=== PATIENT | female | born 1985 | race Caucasian/White ===

== ENCOUNTER 2018-07-04 10:20 | Emergency (ER) | payer MEDICAID, OTHER ==
[~2018-07-04] VITALS: Ht 157.5 cm; Wt 87.1 kg
[~2018-07-04 10:20] MED LIST: PREN-88 PO
[2018-07-04] MEDS ORDERED: CYCLOBENZAPRINE 10MG TABLET PO ONE (11:15)
[2018-07-04] MEDS ORDERED: KETOROLAC 60MG/2ML VIAL IM ONE (11:15)
[2018-07-04 11:22] VITALS: BP 111/75
[2018-07-04 12:59] LABS: CLARITY URINE TURBID (CLEAR); COLOR URINE DARK YELLOW (YELLOW); KETONES URINE TRACE (NEGATIVE); LEUKOCYTE ESTERASE URINE 2+ (NEGATIVE); NITRITE URINE NEGATIVE (NEGATIVE); OCCULT BLOOD URINE NEGATIVE (NEGATIVE); PROTEIN URINE TRACE (NEGATIVE); SPECIFIC GRAVITY URINE 1.031 (1.005-1.030)
== END 2018-07-04 13:34 | disposition home or self-care (01) ==
LOC: ER 10:55
DX: S39.012A Strain of muscle, fascia and tendon of lower back, initial encounter (principal); N39.0 Urinary tract infection, site not specified; Z90.49 Acquired absence of other specified parts of digestive tract; Z79.899 Other long term (current) drug therapy; Y99.8 Other external cause status; Y08.89XA Assault by other specified means, initial encounter; Y93.89 Activity, other specified; Y92.89 Other specified places as the place of occurrence of the external cause
CPT/HCPCS: 81003; 81025; 87077; 87086; 87186; 96372; 99284; J1885

== ENCOUNTER 2019-06-01 09:12 | Observation (INO) | payer MEDICAID, OTHER ==
[~2019-06-01] VITALS: Ht 157.5 cm; Wt 66.7 kg
== END 2019-06-01 11:30 | disposition home or self-care (01) ==
LOC: 8 EST LDRP 09:12
PROVIDERS: ADMIT Specialist; ATTEND Specialist
DX: O26.893 Other specified pregnancy related conditions, third trimester (principal); R10.9 Unspecified abdominal pain; Z3A.35 35 weeks gestation of pregnancy
CPT/HCPCS: 99281; G0378

== ENCOUNTER 2019-06-08 16:00 | Observation (INO) | payer MEDICAID ==
[~2019-06-08] VITALS: Ht 157.5 cm; Wt 80.7 kg
[2019-06-08] MEDS ORDERED: BUTORPHANOL TARTRATE 2 MG/ML VIAL IV PRN (16:45)
[2019-06-08] MEDS ORDERED: DEXT 5%/LR + PITOCIN 20UNITS/L 1,000 ML IV PRN (16:45)
[2019-06-08] MEDS ORDERED: METHYLERGONOVINE MALEATE 0.2 MG/ML IM PRN (16:45)
[2019-06-08] MEDS ORDERED: MISOPROSTOL 100MCG TABLET VG PRN (16:45)
[2019-06-08] MEDS ORDERED: LIDOCAINE HCL 1% 20ML VIAL (Pyxis) INJ INFIL PRN (16:45)
[2019-06-08] MEDS ORDERED: NALOXONE HCL 0.4 MG/ML 1ML VIAL IM PRN (16:45)
[2019-06-08] MEDS ORDERED: CARBOPROST TROMETHAMINE 250 MCG/ML AMPUL IM PRN (16:45)
[2019-06-08] MEDS ORDERED: MINERAL OIL 30ML BOTTLE PR PRN (17:00)
[2019-06-08] MEDS: LACTATED RINGERS 1,000 ML IV SCH ×2 (17:25→17:43)
[2019-06-08 17:52] LABS: BASOPHILS % 0.4 % (0.0-2.0); EOSINOPHILS % 0.5 % (0.0-5.0); HEMATOCRIT. 36.6 % (36.0-48.0); HEMOGLOBIN. 12.4 g/dL (12.0-16.0); LYMPHOCYTES % 19.7 % (20.0-50.0); MEAN CORPUSCULAR HEMOGLOBIN 28.9 pg (28.0-32.0); MEAN CORPUSCULAR VOLUME 85.5 fL (81.0-99.0); MEAN PLATELET VOLUME 9.7 fl (7.4-10.4); MONOCYTES % 3.4 % (2.0-8.0); PLATELET 221 x1000/uL (130-400); RED BLOOD CELL COUNT 4.29 mill/uL (4.2-5.4); RED CELL DISTRIBUTION WIDTH 13.9 % (11.6-14.6)
[2019-06-08 18:06] LABS: INR 0.9; PARTIAL THROMBOPLASTIN TIME 26.8 sec (23.4-31.0); PROTHROMBIN TIME 9.7 sec (9.6-11.0)
[2019-06-08 18:15] LABS: CLARITY URINE CLOUDY (CLEAR); COLOR URINE DARK YELLOW (YELLOW); KETONES URINE TRACE (NEGATIVE); LEUKOCYTE ESTERASE URINE 2+ (NEGATIVE); NITRITE URINE NEGATIVE (NEGATIVE); OCCULT BLOOD URINE 3+ (NEGATIVE); PH URINE 5.5 (4.5-8.0); PROTEIN URINE TRACE (NEGATIVE); SPECIFIC GRAVITY URINE 1.031 (1.005-1.030)
[2019-06-08 18:17] LABS: *AMPHETAMINES SCREEN URINE NEGATIVE (NEGATIVE); *BARBITURATES SCREEN URINE NEGATIVE (NEGATIVE); *BENZODIAZEPINES SCREEN URINE NEGATIVE (NEGATIVE); *COCAINE SCREEN URINE NEGATIVE (NEGATIVE)
[2019-06-08 18:18] LABS: CANNABINOID URINE SCREEN NEGATIVE (NEGATIVE); METHADONE URINE SCREEN NEGATIVE (NEGATIVE); OPIATES URINE SCREEN NEGATIVE (NEGATIVE); PHENCYCLIDINE URINE SCREEN NEGATIVE (NEGATIVE)
[2019-06-08 18:23] LABS: HEPATITIS B SURFACE ANTIGEN NEGATIVE
[2019-06-08] MEDS ORDERED: DEXT 5%/LR + PITOCIN 20UNITS/L 1,000 ML IV SCH (20:58)
[2019-06-08] MEDS ORDERED: IBUPROFEN 400MG TABLET PO PRN (21:00)
[2019-06-08] MEDS ORDERED: RHO(D) IMMUNE GLOBULIN 300 MCG/SYR IM PRN (21:00)
[2019-06-08] MEDS ORDERED: BENZOCAINE/LANOLIN/ALOE VERA SPRAY TOP PRN (21:00)
[2019-06-08 21:40] VITALS: BP 113/69
[2019-06-08 22:15] VITALS: BP 114/66
[2019-06-08] MEDS: IBUPROFEN 800MG TABLET PO PRN (23:23)
[2019-06-09] MEDS: IBUPROFEN 800MG TABLET PO PRN ×3 (05:03→17:19)
[2019-06-09 07:42] VITALS: BP 93/51
[2019-06-09 08:53] LABS: BASOPHILS % 0.3 % (0.0-2.0); EOSINOPHILS % 0.2 % (0.0-5.0); HEMATOCRIT. 31.8 % (36.0-48.0); HEMOGLOBIN. 10.6 g/dL (12.0-16.0); LYMPHOCYTES % 16.4 % (20.0-50.0); MEAN CORPUSCULAR HEMOGLOBIN 28.5 pg (28.0-32.0); MEAN CORPUSCULAR VOLUME 85.5 fL (81.0-99.0); MEAN PLATELET VOLUME 9.1 fl (7.4-10.4); MONOCYTES % 3.5 % (2.0-8.0); NEUTROPHILS % 79.6 % (40.0-76.0); PLATELET 185 x1000/uL (130-400); RED BLOOD CELL COUNT 3.71 mill/uL (4.2-5.4)
[2019-06-09 16:12] VITALS: BP 98/51
[2019-06-09 19:20] VITALS: BP 94/55
[2019-06-09 23:45] VITALS: BP 104/56
[2019-06-10] MEDS: IBUPROFEN 800MG TABLET PO PRN ×2 (00:25→08:43)
[2019-06-10 07:58] VITALS: BP 102/68
[2019-06-10] MEDS ORDERED: TETANUS, DIPHTHERIA, PERTUSSIS VAC/PF 0.5ML (>7YR OLD) IM ONE (09:00)
== END 2019-06-10 11:15 | disposition home or self-care (01) ==
LOC: 8 EST LDRP 16:00 → 8EST 21:40
PROVIDERS: ADMIT Obstetrics & Gynecology; ATTEND Obstetrics & Gynecology
DX: O48.0 Post-term pregnancy (principal); Z3A.38 38 weeks gestation of pregnancy
CPT/HCPCS: 36415; 80305; 81003; 85025; 85610; 85730; 86592; 86703; 86762; 86850; 86900; 86901; 87340; 90715; 96365; 96372; G0378; J0595; J2590; J3490

== ENCOUNTER 2021-04-13 10:10 | Emergency (ER) | payer MEDICAID ==
[~2021-04-13] VITALS: Ht 157.5 cm; Wt 91.0 kg
[2021-04-13] MEDS ORDERED: ACETAMINOPHEN 325MG TABLET PO ONE (11:15)
[2021-04-13] MEDS ORDERED: TOPUD PO (12:01)
[2021-04-13 12:39] VITALS: BP 98/74
== END 2021-04-13 12:40 | disposition home or self-care (01) ==
LOC: ER 10:10
DX: M25.512 Pain in left shoulder (principal)
CPT/HCPCS: 73030; 99283; A4565

== ENCOUNTER 2021-09-03 23:44 | Emergency (ER) | payer MEDICAID ==
[~2021-09-03] VITALS: Ht 160 cm; Wt 90.0 kg
[~2021-09-03 23:44] MED LIST changes: -PREN-88 PO; +TOPUD PO
[2021-09-04] MEDS: KETOROLAC 30MG/ML VIAL IV STA (01:08)
[2021-09-04] MEDS: SODIUM CHLORIDE 0.9% 1,000 ML IV ONE (01:08)
[2021-09-04] MEDS: MAGNESIUM/ALUMINUM HYDROXIDE/SIMETHICONE 30ML UDC PO STA (01:08)
[2021-09-04 01:16] LABS: BASOPHILS % 0.4 % (0.0-2.0); EOSINOPHILS % 1.4 % (0.0-5.0); HEMOGLOBIN. 12.7 g/dL (12.0-16.0); LYMPHOCYTES % 22.4 % (20.0-50.0); MEAN CORPUSCULAR HEMOGLOBIN 27.3 pg (28.0-32.0); MEAN CORPUSCULAR VOLUME 81.7 fL (81.0-99.0); MEAN PLATELET VOLUME 7.5 fl (7.4-10.4); MONOCYTES % 4.1 % (2.0-8.0); NEUTROPHILS % 71.7 % (40.0-76.0); PLATELET 361 x1000/uL (130-400); RED BLOOD CELL COUNT 4.65 mill/uL (4.2-5.4); RED CELL DISTRIBUTION WIDTH 13.8 % (11.6-14.6)
[2021-09-04 01:20] LABS: CLARITY URINE CLOUDY (CLEAR); COLOR URINE YELLOW (YELLOW); KETONES URINE NEGATIVE (NEGATIVE); LEUKOCYTE ESTERASE URINE 2+ (NEGATIVE); NITRITE URINE NEGATIVE (NEGATIVE); OCCULT BLOOD URINE 3+ (NEGATIVE); PH URINE 5.5 (4.5-8.0); PROTEIN URINE NEGATIVE (NEGATIVE); SPECIFIC GRAVITY URINE 1.017 (1.005-1.030)
[2021-09-04 01:23] LABS: CHLORIDE 109 mEq/L (98-107)
[2021-09-04] MEDS ORDERED: CEPH500C2 MT (04:09)
[2021-09-04] MEDS ORDERED: OMEP40CA20 MT (04:10)
[2021-09-04 04:55] VITALS: BP 122/92
== END 2021-09-04 05:00 | disposition home or self-care (01) ==
LOC: ER 23:44
DX: N30.00 Acute cystitis without hematuria (principal); Z90.49 Acquired absence of other specified parts of digestive tract
CPT/HCPCS: 36415; 74176; 80053; 81003; 81025; 83690; 85025; 87086; 96361; 96374; 99284; J1885; J7030